=== PATIENT | female | born 1945 | race Caucasian/White ===

== ENCOUNTER 2020-03-27 08:15 | Outpatient (CLI) | payer MEDICARE ==
[2020-03-27] MEDS ORDERED: LIDOCAINE 1%, 20ML ONE (09:41)
[2020-03-27] MEDS ORDERED: SODIUM BICARBONATE 4.2%, 5ML ONE (09:41)
[2020-03-28] MEDS ORDERED: ONAB100V INJ (13:48)
[2020-03-28] MEDS ORDERED: OMEG1CAP23 PO (13:48)
[2020-03-28] MEDS ORDERED: ASCO100019 PO (13:48)
[2020-03-28] MEDS ORDERED: ASPI81TA45 PO (13:48)
[2020-03-28] MEDS ORDERED: TIMO5SOL11 EACHEYE (13:48)
[2020-03-28] MEDS ORDERED: MULT-658 PO (13:48)
[2020-03-28] MEDS ORDERED: potassium PO (13:48)
[2020-03-28] MEDS ORDERED: VITA400C43 PO (13:48)
[2020-03-28] MEDS ORDERED: SUMA50TA3 PO (13:48)
[2020-03-28] MEDS ORDERED: NAPR220C2 PO (13:48)
[2020-03-28] MEDS ORDERED: NAPR-685 PO (13:48)
[2020-03-28] MEDS ORDERED: CALC1CAP8 PO (13:48)
== END 2020-03-27 23:59 | disposition home or self-care (01) ==
LOC: CFH 08:15
PROVIDERS: ATTEND Surgery
DX: D05.12 Intraductal carcinoma in situ of left breast (principal); Z79.82 Long term (current) use of aspirin; Z79.899 Other long term (current) drug therapy; Z87.891 Personal history of nicotine dependence; Z90.49 Acquired absence of other specified parts of digestive tract
CPT/HCPCS: 19285; 77065

== ENCOUNTER → 2020-03-28 | Outpatient (CLI) | payer MEDICARE ==
[~2020-03-28] MED LIST: ASCO100019 PO; ASPI81TA45 PO; CALC1CAP8 PO; MULT-658 PO; NAPR-685 PO; NAPR220C2 PO; OMEG1CAP23 PO; ONAB100V INJ; SUMA50TA3 PO; TIMO5SOL11 EACHEYE; VITA400C43 PO; potassium PO
== END | disposition home or self-care (01) ==
LOC: STAR 13:07
PROVIDERS: ATTEND Surgery
DX: Z01.812 Encounter for preprocedural laboratory examination (principal); Z20.828 Contact with and (suspected) exposure to other viral communicable diseases; R94.31 Abnormal electrocardiogram [ECG] [EKG]
CPT/HCPCS: 87635; 93005

== ENCOUNTER 2020-04-02 06:14 | Day surgery (SDC) | payer MEDICARE ==
[~2020-04-02] VITALS: Ht 157.5 cm; Wt 56.8 kg
[2020-04-02] MEDS ORDERED: EPINEPHRINE 1 MG/ML, 1ML ONE (06:35)
[2020-04-02] MEDS ORDERED: BUPIVACAINE/PF 0.5% ONE (06:35)
[2020-04-02] MEDS ORDERED: CHLORHEXIDINE 15 ML UDC MM ONE (07:00)
[2020-04-02] MEDS ORDERED: LACTATED RINGERS 1,000 ML IV SCH (07:00)
[2020-04-02] MEDS ORDERED: LIDOCAINE-MPF 1%, 2ML INFIL ONE (07:00)
[2020-04-02 07:17] VITALS: BP 150/93
[2020-04-02] MEDS ORDERED: FENTANYL PF 250 MCG/5ML ONE (07:30)
[2020-04-02] MEDS ORDERED: CHARCOAL/AQUEOUS 25 GM/120 ML ONE (08:04)
[2020-04-02] MEDS ORDERED: DEXAMETHASONE 4 MG/ML, 1ML ONE (08:04)
[2020-04-02] MEDS ORDERED: CEFAZOLIN 1,000 MG ONE (08:04)
[2020-04-02] MEDS ORDERED: ONDANSETRON 2MG/ML, 2ML ONE (08:04)
[2020-04-02] MEDS ORDERED: PROPOFOL 10 MG/ML, 20ML ONE (08:04)
[2020-04-02] MEDS ORDERED: ACETAMINOPHEN 325 MG TABLET PO PRN (08:30)
[2020-04-02] MEDS ORDERED: FENTANYL PF 100 MCG/2ML IV PRN (08:30)
[2020-04-02] MEDS ORDERED: PROMETHAZINE 25 MG/ML, 1ML IVPush PRN (08:30)
[2020-04-02] MEDS ORDERED: MEPERIDINE/PF 25MG/0.5ML IVPush PRN (08:30)
[2020-04-02] MEDS ORDERED: hydrALAzine 20 MG/ML, 1ML IV PRN (08:30)
[2020-04-02] MEDS ORDERED: LABETALOL 5MG/ML, 20ML IV PRN (08:30)
[2020-04-02] MEDS ORDERED: OXYcodone 5 MG/5 ML ORAL.SOL UDC PO PRN (08:30)
[2020-04-02] MEDS ORDERED: EPHEDRINE 50 MG/ML, 1ML IVPush PRN (08:30)
[2020-04-02] MEDS ORDERED: HYDROmorphone 1 MG/ML, 1ML INJ IVPush PRN (08:30)
[2020-04-02] MEDS ORDERED: ONDANSETRON 2MG/ML, 2ML IVPush PRN (08:30)
[2020-04-02] MEDS ORDERED: LORazepam 2 MG/ML, 1ML IVPush PRN (08:30)
== END 2020-04-02 10:30 | disposition home or self-care (01) ==
LOC: OUT 06:14
PROVIDERS: ATTEND Surgery
DX: C50.812 Malignant neoplasm of overlapping sites of left female breast (principal); Z79.82 Long term (current) use of aspirin; Z79.899 Other long term (current) drug therapy; Z87.891 Personal history of nicotine dependence; Z90.49 Acquired absence of other specified parts of digestive tract
CPT/HCPCS: 19125; 76098; 88307; 88341; 88342; 88360; 88361; 88374; J0171; J0690; J1100; J2405; J2704; J3010; J7120

== ENCOUNTER 2020-04-23 06:44 | Day surgery (SDC) | payer MEDICARE ==
[~2020-04-23] VITALS: Ht 157.5 cm; Wt 56.3 kg
[2020-04-23] MEDS ORDERED: EPINEPHRINE 1 MG/ML, 1ML ONE (06:55)
[2020-04-23] MEDS ORDERED: BUPIVACAINE/PF 0.5% ONE (06:55)
[2020-04-23] MEDS ORDERED: ISOSULFAN BLUE 10 MG/ML, 5ML IV ONE ×2 (06:55→09:48)
[2020-04-23 07:30] VITALS: BP 177/85
[2020-04-23] MEDS ORDERED: CHLORHEXIDINE 15 ML UDC MM ONE (07:30)
[2020-04-23] MEDS ORDERED: LACTATED RINGERS 1,000 ML IV SCH (07:30)
[2020-04-23] MEDS ORDERED: FENTANYL PF 100 MCG/2ML ONE ×2 (08:14→09:12)
[2020-04-23] MEDS ORDERED: MIDAZOLAM 1 MG/ML, 2ML ONE (08:14)
[2020-04-23] MEDS ORDERED: PROPOFOL 10 MG/ML, 20ML ONE ×2 (08:17→08:20)
[2020-04-23] MEDS ORDERED: DEXAMETHASONE 4 MG/ML, 1ML ONE (08:20)
[2020-04-23] MEDS ORDERED: ONDANSETRON 2MG/ML, 2ML ONE (08:20)
[2020-04-23] MEDS ORDERED: CEFAZOLIN 1,000 MG ONE (08:20)
[2020-04-23] MEDS ORDERED: PROMETHAZINE 25 MG/ML, 1ML IVPush PRN (09:00)
[2020-04-23] MEDS ORDERED: ALBUTEROL SULFATE 2.5 MG/3 ML NPPB PRN (09:00)
[2020-04-23] MEDS ORDERED: OXYcodone 5 MG/5 ML ORAL.SOL UDC PO PRN (09:00)
[2020-04-23] MEDS ORDERED: ONDANSETRON 2MG/ML, 2ML IVPush PRN (09:00)
[2020-04-23] MEDS ORDERED: ACETAMINOPHEN 325 MG TABLET PO PRN (09:00)
[2020-04-23] MEDS ORDERED: LABETALOL 5MG/ML, 20ML IV PRN (09:00)
[2020-04-23] MEDS ORDERED: DIAZEPAM 5 MG/ML, 2ML IVPush PRN (09:00)
[2020-04-23] MEDS ORDERED: DIPHENHYDRAMINE 50 MG/ML, 1ML IVPush PRN ×2 (09:00)
[2020-04-23] MEDS ORDERED: hydrALAzine 20 MG/ML, 1ML IV PRN (09:00)
[2020-04-23] MEDS ORDERED: HYDROmorphone 1 MG/ML, 1ML INJ IVPush PRN (09:00)
[2020-04-23] MEDS ORDERED: MIDAZOLAM 1 MG/ML, 2ML IV PRN (09:00)
[2020-04-23] MEDS ORDERED: EPHEDRINE 50 MG/ML, 1ML IVPush PRN (09:00)
[2020-04-23] MEDS ORDERED: MEPERIDINE/PF 25MG/0.5ML IVPush PRN (09:00)
[2020-04-23] MEDS ORDERED: PROMETHAZINE 12.5 MG SUPP PR PRN (09:00)
[2020-04-23] MEDS ORDERED: HYDR-1067 PO (09:03)
[2020-04-23] MEDS ORDERED: OXYcodone 5 MG/5 ML ORAL.SOL UDC ONE (09:13)
[2020-04-23] MEDS: FENTANYL PF 100 MCG/2ML IV PRN ×3 (09:15→09:40)
[2020-04-23] MEDS ORDERED: ACETAMINOPHEN 650 MG/20.3 ML UDC ONE (09:26)
[2020-04-23] MEDS ORDERED: ACETAMINOPHEN 325 MG TABLET ONE (09:27)
== END 2020-04-23 11:05 | disposition home or self-care (01) ==
LOC: OUT 06:44
PROVIDERS: ATTEND Surgery
DX: C50.112 Malignant neoplasm of central portion of left female breast (principal); N60.22 Fibroadenosis of left breast; Z20.822 Contact with and (suspected) exposure to COVID-19; Z79.82 Long term (current) use of aspirin; Z79.899 Other long term (current) drug therapy; Z87.891 Personal history of nicotine dependence; Z98.890 Other specified postprocedural states
CPT/HCPCS: 19301; 38525; 38792; 87635; 88305; 88307; 88341; 88342; A9541; J0171; J0690; J1100; J2250; J2405; J2704; J3010; J7120

== ENCOUNTER 2020-05-14 08:02 | Outpatient (CLI) | payer MEDICARE ==
[~2020-05-14 08:02] MED LIST changes: +HYDR-1067 PO
== END 2020-05-14 23:59 | disposition home or self-care (01) ==
LOC: ROC 08:02
PROVIDERS: ATTEND Radiology Radiation Oncology
DX: C50.112 Malignant neoplasm of central portion of left female breast (principal); Z79.82 Long term (current) use of aspirin; Z79.899 Other long term (current) drug therapy; Z98.890 Other specified postprocedural states; Z87.891 Personal history of nicotine dependence
CPT/HCPCS: G0463

== ENCOUNTER 2020-07-20 08:06 | Outpatient (CLI) | payer MEDICARE ==
[~2020-07-20 08:06] MED LIST changes: -HYDR-1067 PO; +HYDR-2214 PO
[2020-07-20] MEDS ORDERED: TRAM50TA2 PO (11:43)
== END 2020-07-20 23:59 | disposition home or self-care (01) ==
LOC: ROC 08:06
PROVIDERS: ATTEND Radiology Radiation Oncology
DX: Z08 Encounter for follow-up examination after completed treatment for malignant neoplasm (principal); Z85.3 Personal history of malignant neoplasm of breast; Z79.82 Long term (current) use of aspirin; Z79.899 Other long term (current) drug therapy; Z98.890 Other specified postprocedural states; Z87.891 Personal history of nicotine dependence
CPT/HCPCS: G0463

== ENCOUNTER → 2020-08-06 | Outpatient (CLI) | payer MEDICARE ==
[~2020-08-06] MED LIST changes: +TRAM50TA2 PO
== END | disposition home or self-care (01) ==
LOC: ROC 07:31
PROVIDERS: ATTEND Radiology Radiation Oncology
DX: Z08 Encounter for follow-up examination after completed treatment for malignant neoplasm (principal); L58.0 Acute radiodermatitis; Z85.3 Personal history of malignant neoplasm of breast; Z79.82 Long term (current) use of aspirin; Z79.899 Other long term (current) drug therapy; Z98.890 Other specified postprocedural states; Z87.891 Personal history of nicotine dependence
CPT/HCPCS: G0463

== ENCOUNTER 2020-11-12 07:34 | Outpatient (CLI) | payer MEDICARE | END 2020-11-12 23:59 | disposition home or self-care (01) | LOC: ROC 07:34 | PROVIDERS: ATTEND Radiology Radiation Oncology | DX: Z08 Encounter for follow-up examination after completed treatment for malignant neoplasm (principal); Z85.3 Personal history of malignant neoplasm of breast | CPT/HCPCS: G0463 ==